=== PATIENT | female | born 1970 | race Two or more races ===

== ENCOUNTER 2025-08-05 19:28 | Emergency (ER) | payer OTHER ==
[~2025-08-05] VITALS: Ht 139.7 cm; Wt 105.7 kg
[2025-08-05 20:06] VITALS: O2SAT 97
[2025-08-05] MEDS ORDERED: METFORMIN HCL500 M3 PO (20:17)
[2025-08-05] MEDS ORDERED: ATORVASTATIN CA10 MG PO (20:17)
[2025-08-05] MEDS ORDERED: RISPERDAL3 MG PO (20:18)
[2025-08-05] MEDS ORDERED: SYNTHROID137 MCG PO (20:18)
[2025-08-05] MEDS ORDERED: FOLIC ACID0.8 M1 PO (20:18)
[2025-08-05 22:13] LABS: BASO % 0.4 % (0.1-1.2); EOS # 0.06 (0.04-0.54); EOS % 0.7 % (0.7-7.0); LYMPH # 0.81 (1.18-3.74); LYMPH % 9.6 % (19.3-53.1); MEAN PLATELET VOLUME 10.90 fl (9.4-12.4); MONO # 0.95 (0.24-0.82); MONO % 11.3 % (4.7-12.5); NEUT # 6.55 (1.56-6.13); NEUT % 77.5 % (34.0-71.1); RED CELL DISTRIBUTION WIDTH 13.2 % (11.6-14.4)
[2025-08-05 22:32] LABS: INR 1.06
[2025-08-05 22:38] LABS: ALT/SGPT 22.0 U/L (12-78); AST/SGOT 22.0 U/L (15-37); BILIRUBIN TOTAL 0.45 mg/dL (0.3-1.2); BUN CREA RATIO 10.0 (7.0-25.0); CREATININE SERUM 0.61 mg/dL (0.55-1.02); GFR 101.83; GLOBULINA 4.5 G/DL (2.4-3.5); GLUCOSE FASTING 107.0 mg/dL (65-100); OSMOLALITY SERUM 279.0 MOSM/KG (275-295)
[2025-08-05 23:04] LABS: URINE APPEARANCE Clear; URINE BILIRRUBIN Negative (NEGATIVE); URINE BLOOD NHT; URINE COLOR Yellow; URINE GLUCOSE Negative (NEGATIVE); URINE KETONE Negative (NEGATIVE); URINE LEUKOCYTE Moderate; URINE NITRATE Negative; URINE PROTEIN Negative (NEGATIVE); URINE UROBILINOGEN 0.2 E.U./dl
[2025-08-05 23:10] LABS: URINE BACTERIA 299.6 uL (0.0-1933); URINE EPITHELIAL CELLS 11.9 uL (0.0-38.8); URINE RBC 12.8 uL (0.0-20.8); URINE WBC 157.3 uL (0.0-23.2)
[2025-08-05 23:13] LABS: URINE CAST 0.14 uL (0.0-1.40)
[2025-08-05 23:23] LABS: COVID-19 AG NEGATIVE (NEGATIVE)
[2025-08-05] MEDS ORDERED: CEFTRIAXONE SODIUM 1,000 MG VIAL IM ONE (23:30)
[2025-08-05] MEDS ORDERED: CEFTRIAXONE SODIUM 1,000 MG VIAL ONE (23:51)
[2025-08-06] MEDS ORDERED: CEFTRIAXONE SODIUM 1,000 MG VIAL ONE (00:46)
[2025-08-06] MEDS ORDERED: LIDOCAINE HCL 1% 10ML VIAL ONE (00:46)
[2025-08-06 02:27] VITALS: BP 132/80
== END 2025-08-06 02:28 ==
LOC: ER 19:29
PROVIDERS: General Practice
DX: R55 Syncope and collapse (principal); R42 Dizziness and giddiness; N39.0 Urinary tract infection, site not specified; Z20.822 Contact with and (suspected) exposure to COVID-19; Z95.0 Presence of cardiac pacemaker
CPT/HCPCS: 70450; 71045; 93005; 96365; 99284; J0696